=== PATIENT | female | born 1960 | race Caucasian/White ===

== ENCOUNTER 2017-11-07 09:25 | Day surgery (SDC) | payer BC ==
[2017-11-07] MEDS ORDERED: FENTAnyl 50 MCG/ML VIAL (11:25)
[2017-11-07] MEDS ORDERED: MIDAZOLAM 1 MG/ML 2 ML INJ ×2 (11:25)
== END 2017-11-07 15:12 | disposition home or self-care (01) ==
LOC: GIL 09:25
DX: K29.30 Chronic superficial gastritis without bleeding (principal); K20.9 Esophagitis, unspecified; K29.80 Duodenitis without bleeding
CPT/HCPCS: 43239; 88305; 88312